=== PATIENT | female | born 1935 | race Caucasian/White ===

== ENCOUNTER → 2018-04-09 | Outpatient (CLI) | payer MEDICARE, MEDICAID ==
[~2018-04-09] MED LIST: ALEN70TA51 PO; ALENDRONATE; ALPR.5T PO; AMLO5TAB2 GT; ASP81TEC PO; ASPI325T32 PO; DNPZ5T PO; ENAL5TAB PO; ESCI5TAB PO; ESCT10T PO; FLEC100T2 PO; FLEC50TA2 PO; FLUT1DIS26 IH; FURO40TA4 PO; IBP200T PO; IBUP-30 PO; KCL10CCR PO; LEVASTATIN; LOVA20TA2 PO; NITR100C3 PO; WRF5T PO
--- NOTE | 2018-04-09 14:05 | Diagnostic Imaging Report ---
INDICATION: Left leg pain and swelling. TECHNIQUE: Grayscale with color-flow and Doppler waveform evaluation of the left lower extremity deep venous system. CORRELATION STUDY: None FINDINGS: Color and grayscale sonographic images demonstrate no intraluminal defect within the visualized portion of the common femoral, superficial femoral and/or popliteal veins to suggest thrombus formation. These vessels demonstrate normal response to compression and augmentation. No soft tissue fluid collection. IMPRESSION: 1. Negative for deep venous thrombosis of the left leg. Dictated by: Dictated on workstation # [id number]
== END ==
LOC: RAD 11:39
PROVIDERS: ATTEND Family Medicine
DX: R22.42 Localized swelling, mass and lump, left lower limb (principal)

== ENCOUNTER → 2019-06-23 | Outpatient (CLI) | payer MEDICARE, MEDICAID ==
--- NOTE | 2019-06-23 15:54 | Diagnostic Imaging Report ---
PROCEDURE: US left lower extremity venous. TECHNIQUE: Multiple real-time grayscale images were obtained over the left lower extremity in various projections. Additional duplex Doppler and color Doppler images were also obtained. INDICATION: Pain and swelling. FINDINGS: The left common femoral, superficial femoral, popliteal veins and tibial veins demonstrate normal response to compression, augmentation, and Valsalva. There are no abnormal left lower extremity fluid collections or masses. IMPRESSION: No evidence of deep venous thrombosis in the left lower extremity. Dictated by: Dictated on workstation # [id number]
== END ==
LOC: RAD 13:01
PROVIDERS: ATTEND Nurse Practitioner Family
DX: M79.89 Other specified soft tissue disorders (principal)

== ENCOUNTER → 2021-09-05 | Outpatient (CLI) | payer MEDICARE, MEDICAID ==
--- NOTE | 2021-09-05 11:15 | Diagnostic Imaging Report ---
INDICATION: Cough and shortness of breath. TIME OF EXAM: 9:46 AM. COMPARISON: Correlation is made with the prior chest of 05/30/2010. FINDINGS: The heart size is normal. The pulmonary vascularity is unremarkable. The lungs are clear. No infiltrate, effusion, or pneumothorax is detected. IMPRESSION: No acute cardiopulmonary process is detected. Dictated by: Dictated on workstation # [id number]
== END ==
LOC: RAD 09:27
PROVIDERS: ATTEND Nurse Practitioner Family
DX: R05.9 Cough, unspecified (principal); R06.02 Shortness of breath
CPT/HCPCS: 71046

== ENCOUNTER 2022-01-19 10:26 | Emergency (ER) | payer MEDICARE, MEDICAID ==
[~2022-01-19] VITALS: Ht 162 cm; Wt 63.0 kg
--- NOTE | 2022-01-19 10:50 | ED Fall/Injury ---
General Chief Complaint: Trauma-Non Activation Stated Complaint: FALL Nursing Triage Note: arrives to room 6 via ems from [facility] where staff report patient was found in bed but after patient noted pain their assessment noted extensive brusing on her upper thorasic area her, lower back and left posterior lateral knee. patient is unable to recall falling. alert to person only Source: patient, EMS Exam Limitations: clinical condition (limited by dementia) History of Present Illness Date Seen by Provider: Jan 19, 2022 Time Seen by Provider: 10:30 Initial Comments Patient is an 86-year-old female who presents to the emergency department from [facility] chief complaint is that she was found in bed fully dressed and then on examination by staff multiple bruises noted to the left thigh, left hip and left flank. She is complaining of some back pain. She has no recollection of falling or where she may have fallen whatsoever. On her medical records from [facility] it is noted that she has dementia as well as A. fib. No blood thinning agents are noted on her MAR. She denies illness. She states she smokes occasionally. She does not require the use of oxygen. She is 92% on room air with no evidence of increased respiratory effort/distress. Review of systems limited secondary to her dementia. Occurred: other (unknown) Severity: mild Injuries/Pain Location: chest (left flank) Context: unknown Loss of Consciousness: unsure Associated Symptoms (Fall): Other (back pain) Allergies and Home Medications Allergies Coded Allergies: Enalaprilat (Unverified Allergy, Mild, 01/22/08) Gentian Jessie *RETIRED-01/16/12 (Unverified Allergy, Mild, 01/22/08) Nortriptyline (Unverified Allergy, Mild, 01/22/08) Oxycodone (Unverified Allergy, Mild, 01/22/08) Wheat Containing *RETIRED-01/26/12 (Unverified Allergy, Mild, 01/22/08) egg (Unverified Allergy, Mild, 01/22/08) milk (Unverified Allergy, Mild, 01/22/08) nystatin (Unverified Allergy, Mild, 01/22/08) Uncoded Allergies: PCN (Allergy, Mild, 01/22/08) TAPE (Allergy, Mild, 01/22/08) Patient Home Medication List Home Medication List Reviewed: Yes Alprazolam (Xanax) 0.5 Mg Tablet, 0.5 MG PO TID PRN, (Reported) Entered as Reported by: SILVERIO SOLORIO on 10/22/10 184 Amlodipine Besylate (Norvasc Tablet) 5 Mg Tab, 5 MG GT DAILY, (Reported) Entered as Reported by: DEANA YOUNG on 04/03/13 1056 Aspirin (Aspirin Ec 81 Mg) 81 Mg Tabec, 81 MG PO DAILY, (Reported) Entered as Reported by: ALETHA GALEAS on 10/24/10 1502 Donepezil Hcl (Aricept) 5 Mg Tablet, 1 TAB PO HS, (Reported) Entered as Reported by: DONN FLOYD on 02/09/13 1909 Escitalopram Oxalate (Lexapro) 10 Mg Tablet, 10 MG PO DAILY, (Reported) Entered as Reported by: SILVERIO SOLORIO on 10/22/101844 Flecainide Acetate (Flecainide Acetate) 50 Mg Tablet, 50 MG PO BID, (Reported) Entered as Reported by: DEANA YOUNG on 04/03/13 1056 Ibuprofen (Advil) 200 Mg Tablet, 600 MG PO TID, (Reported) Entered as Reported by: DEANA YOUNG on 04/03/13 1056 [Alandronate Sodium] , 70 MG WEEKLY, (Reported) Entered as Reported by: DEANA YOUNG on 04/03/13 1056 Review of Systems Review of Systems Constitutional: see HPI Eyes: No Symptoms Reported Ears, Nose, Mouth, Throat: no symptoms reported Respiratory: no symptoms reported Cardiovascular: no symptoms reported Gastrointestinal: no symptoms reported Musculoskeletal: back pain All Other Systems Reviewed Negative Unless Noted: Yes Past Eibrllo-Tltnyg-Yzngqt Hx Past Medical History Asthma Reproductive Disorders: No Sexually Transmitted Disease: No HIV/AIDS: No Arthritis Breast Anxiety Adverse Reaction/Blood Tranf: No Physical Exam Vital Signs Vital Signs - First Documented 01/19/22 01/19/22 10:30 10:31 Temp 36.8 Pulse 90 Resp 18 B/P (MAP) 165/74 (104) Pulse Ox 92 O2 Delivery Room Air Capillary Refill : Less Than 3 Seconds Height, Weight, BMI Height: '" Weight: 114lbs. oz. 51.370457se; 24.00 BMI Method:Stated General Appearance: WD/WN, no apparent distress HEENT: PERRL/EOMI, normal ENT inspection, TMs normal Neck: non-tender, full range of motion Cardiovascular: systolic murmur, irregularly irregular Respiratory: lungs clear, normal breath sounds, no respiratory distress Gastrointestinal: non tender, soft Back: other (tenderness mi/lower thoracic midline pain) Extremities: normal range of motion, non-tender, normal inspection Neurologic/Psychiatric: alert, normal mood/affect, other (oriented to self only) Skin: normal color, warm/dry, ecchymosis (left flank/left buttock/left lateral thigh) Progress/Results/Core Measures Results/Orders My Orders Orders - MERVIN SERRANO MD Ct Head/Cervical Spine Wo (01/19/22 10:50) Ct Thoracic Spine Wo (01/19/22 10:50) Vital Signs/I&O 01/19/22 01/19/22 10:30 10:31 Temp 36.8 36.8 Pulse 90 90 Resp 18 18 B/P (MAP) 165/74 (104) 165/74 (104) Pulse Ox 92 92 O2 Delivery Room Air Blood Pressure Mean: 104 Progress Progress Note : Time: 12:46 Progress Note Updated sons at the bedside on work up and results. They stated her confusion and mental state are at her baseline. They are comfortable with plan of care. Diagnostic Imaging Diagonstic Imaging: CT Comments [facility] [place], [place] NAME: VIPUL MCKEON Desirae [facility] REC#: [id number] PT STATUS: REG ER : 1935 PHYSICIAN: MERVIN SERRANO MD ADMIT DATE: 01/19/22/ER Draft Date of Exam:01/19/22 CT HEAD/CERVICAL SPINE WO PROCEDURE: CT head and CT cervical spine without contrast. TECHNIQUE: Multiple contiguous axial images were obtained through the brain and cervical spine without the use of intravenous contrast. Sagittal and coronal reformations through the cervical spine were then performed. Auto Exposure Controls were utilized during the CT exam to meet ALARA standards for radiation dose reduction. INDICATION: Fall. Back pain. Confusion. COMPARISON: MRI brain 02/05/2013. FINDINGS: CT HEAD: Moderate generalized parenchymal volume loss and leukoaraiosis. No intracranial hemorrhage, mass effect, hydrocephalus or extra-axial fluid collections. No CT evidence of a territorial infarction. Osseous structures are intact. Paranasal sinuses and mastoids are clear. CT CERVICAL SPINE: Normal alignment. Vertebral body heights are preserved. No fractures are identified. Moderate to advanced degenerative endplate changes are greatest at C3-C6. No high-grade spinal canal stenosis is evident by noncontrast CT. Paravertebral soft tissues are unremarkable. Lung apices are clear. IMPRESSION: No acute intracranial or cervical spine CT findings. Chronic findings, as above. Dictated on workstation # [id number] Dict: 01/19/22 1153 Trans: 01/19/22 1223 [facility] [id number] Interpreted by: MEENA RICHARD MD Electronically signed by: [employer] Imaging: CT Comments NAME: VIPUL MCKEON [facility] REC#: [id number] PT STATUS: REG ER : 1935 PHYSICIAN: MERVIN SERRANO MD ADMIT DATE: 01/19/22/ER Draft Date of Exam:01/19/22 CT THORACIC SPINE WO PROCEDURE: CT thoracic spine without contrast. TECHNIQUE: Multiple axial computerized tomography images were obtained from the base of the thoracic spine to the vertex without intravenous contrast. Auto Exposure Controls were utilized during the CT exam to meet ALARA standards for radiation dose reduction. INDICATION: Fall. Trauma. Back pain. Back bruising. COMPARISON: None. FINDINGS: Normal alignment. Vertebral body heights are preserved. No thoracic spine fractures. Hngx-dp-xswulnwy degenerative endplate changes are greatest at T3-T4. There is ankylosis of T4 through T12. No high-grade spinal canal stenosis is evident by noncontrast CT. Mildly angulated posterior left ninth rib fracture. Visualized lung garcia are clear other than mild dependent atelectasis. Advanced atherosclerotic calcifications in the coronary arteries. Moderate esophageal hiatal hernia. IMPRESSION: 1. Acute mildly angulated posterior left ninth rib fracture. 2. No acute CT findings in the thoracic spine. 3. 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 Dictated on workstation # [id number] Dict: 01/19/22 1220 Trans: 01/19/22 1232 [id number] [id number] Interpreted by: MEENA RICHARD MD Electronically signed by: Departure Impression Primary Impression: Contusion, multiple sites Additional Impression: Closed rib fracture Qualified Codes: S22.32XA - Fracture of one rib, left side, initial encounter for closed fracture Disposition: 01 HOME, SELF-CARE Condition: Stable Departure-Patient Inst. Decision time for Depature: 12:38 Referrals: DEE VAUGHN MD (PCP/Family) Primary Care Physician Patient Instructions: Minor Contusion ED, Rib Fracture (DC) Add. Discharge Instructions: Drink plenty of fluids to stay well-hydrated. Ibuprofen or Tylenol as needed every 6 hours for pain. Ice packs to the areas of swelling and bruising as needed for discomfort. Remember to take deep breaths with your broken rib on the left, it will be pain ful to take deep breaths but you need to do this in order to avoid developing pneumonia. Return to the emergency department for any new, concerning or emergent complaints. Verification and Attestation of Medical Student E/M Service A medical student performed and documented this service in my presence. I reviewed and verified all information documented by the medical student and made modifications to such information, when appropriate. I personally performed the physical exam and medical decision making. Mervin Serrano, Jan 19, 2022,11:00 Copy Copies To 1: DEE VAUGHN MD, KATHRYN M MD Jan 19, 2022 10:50
--- NOTE | 2022-01-19 12:23 | Diagnostic Imaging Report ---
PROCEDURE: CT head and CT cervical spine without contrast. TECHNIQUE: Multiple contiguous axial images were obtained through the brain and cervical spine without the use of intravenous contrast. Sagittal and coronal reformations through the cervical spine were then performed. Auto Exposure Controls were utilized during the CT exam to meet ALARA standards for radiation dose reduction. INDICATION: Fall. Back pain. Confusion. COMPARISON: MRI brain 02/05/2013. FINDINGS: CT HEAD: Moderate generalized parenchymal volume loss and leukoaraiosis. No intracranial hemorrhage, mass effect, hydrocephalus or extra-axial fluid collections. No CT evidence of a territorial infarction. Osseous structures are intact. Paranasal sinuses and mastoids are clear. CT CERVICAL SPINE: Normal alignment. Vertebral body heights are preserved. No fractures are identified. Moderate to advanced degenerative endplate changes are greatest at C3-C6. No high-grade spinal canal stenosis is evident by noncontrast CT. Paravertebral soft tissues are unremarkable. Lung apices are clear. IMPRESSION: No acute intracranial or cervical spine CT findings. Chronic findings, as above. Dictated by: Dictated on workstation # [id number]
--- NOTE | 2022-01-19 12:33 | Diagnostic Imaging Report ---
PROCEDURE: CT thoracic spine without contrast. TECHNIQUE: Multiple axial computerized tomography images were obtained from the base of the thoracic spine to the vertex without intravenous contrast. Auto Exposure Controls were utilized during the CT exam to meet ALARA standards for radiation dose reduction. INDICATION: Fall. Trauma. Back pain. Back bruising. COMPARISON: None. FINDINGS: Normal alignment. Vertebral body heights are preserved. No thoracic spine fractures. Dhmq-nz-vcdftukr degenerative endplate changes are greatest at T3-T4. There is ankylosis of T4 through T12. No high-grade spinal canal stenosis is evident by noncontrast CT. Mildly angulated posterior left ninth rib fracture. Visualized lung garcia are clear other than mild dependent atelectasis. Advanced atherosclerotic calcifications in the coronary arteries. Moderate esophageal hiatal hernia. IMPRESSION: 1. Acute mildly angulated posterior left ninth rib fracture. 2. No acute CT findings in the thoracic spine. 3. 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 Dictated by: Dictated on workstation # [id number]
[2022-01-19 13:19] VITALS: BP 171/85
== END 2022-01-19 13:30 | disposition home or self-care (01) ==
LOC: EDUNIT# 10:26 → ER 10:29
DX: S22.32XA Fracture of one rib, left side, initial encounter for closed fracture (principal); S90.02XA Contusion of left ankle, initial encounter; S30.0XXA Contusion of lower back and pelvis, initial encounter; S70.12XA Contusion of left thigh, initial encounter; F17.200 Nicotine dependence, unspecified, uncomplicated; W19.XXXA Unspecified fall, initial encounter
CPT/HCPCS: 70450; 72125; 72128

== ENCOUNTER → 2022-08-15 | Outpatient (CLI) | payer MEDICARE, MEDICAID ==
--- NOTE | 2022-08-15 16:57 | Diagnostic Imaging Report ---
Status post fall, pain 2 view chest 08/15/2022 COMPARISON 09/05/2021 FINDINGS: The heart is unremarkable. The pulmonary vasculature normal. Increased density in the aspect of the right upper chest abutting the mediastinum is unchanged possibly due to ectatic vasculature or prominence of the thyroid. There is eventration of the right hemidiaphragm with an adjacent airspace opacity noted. This is nonspecific and could represent a focus of atelectasis with infiltrate less likely but not excluded. Correlate with patient's symptoms. There is no pneumothorax. There are no effusions. IMPRESSION: 1. Density at the right lung base could be volume averaging with superimposed airspace opacity and eventration of the right hemidiaphragm. Atelectasis or infiltrate not excluded. Correlate with symptoms. Remaining chest is stable. Dictated by: Dictated on workstation # [id number]
--- NOTE | 2022-08-15 17:45 | Diagnostic Imaging Report ---
HISTORY: Thoracic back pain TECHNIQUE: 3 views of the thoracic spine COMPARISON: 08/15/2022 FINDINGS: Alignment of the thoracic spine appears normal with no spondylolisthesis. Vertebral body heights are generally preserved. There is marked degenerative change in the upper thoracic spine. There appear to be flowing anterior osteophytes, suggestive of diffuse idiopathic skeletal hyperostosis. IMPRESSION: 1. Degenerative changes in the thoracic spine with no acute fracture seen. Dictated by: Dictated on workstation # [id number]
--- NOTE | 2022-08-15 17:45 | Diagnostic Imaging Report ---
HISTORY: Right rib pain after fall. TECHNIQUE: Frontal and oblique views of the right ribs. COMPARISON: 09/05/2021. FINDINGS: No displaced fractures are seen of the right ribs. There is calcification of the costal cartilage. No pleural effusion or pneumothorax is seen. IMPRESSION: 1. No displaced right rib fractures. Dictated by: Dictated on workstation # [id number]
== END ==
LOC: RAD 14:43
PROVIDERS: ATTEND Nurse Practitioner Family
DX: M47.814 Spondylosis without myelopathy or radiculopathy, thoracic region (principal); R07.81 Pleurodynia; R91.8 Other nonspecific abnormal finding of lung field; W19.XXXA Unspecified fall, initial encounter
CPT/HCPCS: 71046; 71100; 72072

== ENCOUNTER 2022-10-13 13:41 | Emergency (ER) | payer MEDICARE, MEDICAID ==
[~2022-10-13] VITALS: Ht 160 cm; Wt 63.5 kg
--- NOTE | 2022-10-13 13:58 | ED General ---
General Chief Complaint: Altered Mental Status Stated Complaint: ALTERED MENTAL STATUS Nursing Triage Note: PT ARRIVED PER EMS, PT ACCORDING TO STAFF AT [facility] HAS HAD CHANGES IN MENTATION SINCE YESTERDAY. PT HAS HAD UTI AND FINISHED 7DAY COARSE OF BACTRIM. PT HAS HX OF DEMENTIA. PT HAS ALSO GOTTEN WEAKER TODAY Source of Information: Patient, EMS Exam Limitations: No Limitations History of Present Illness Date Seen by Provider: Oct 13, 2022 Time Seen by Provider: 13:54 Initial Comments Patient is a 87-year-old female with a history of urinary tract infections, periodic small A-fib, insomnia, anxiety, dementia who presents to ED from [facility] for increased confusion and weakness. Recently finished Bactrim today over 7 days for urinary tract infection. Patient with a change in her mentation today. She was acting like she was drinking coffee with her hands this morning. Staff noted a unsteady gait. She appears to be more weak than normal. They are concerned for sepsis at [facility]. Patient on arrival alert and oriented x2. She denies of any current complaints. She denies chest pain, headache, visual changes, abdominal pain, vomiting or diarrhea, fever, back pain, fever, or urinary symptoms. Allergies and Home Medications Allergies Coded Allergies: Enalaprilat (Unverified Allergy, Mild, 01/22/08) Gentian Jessie *RETIRED-01/16/12 (Unverified Allergy, Mild, 01/22/08) Nortriptyline (Unverified Allergy, Mild, 01/22/08) Oxycodone (Unverified Allergy, Mild, 01/22/08) Wheat Containing *RETIRED-01/26/12 (Unverified Allergy, Mild, 01/22/08) egg (Unverified Allergy, Mild, 01/22/08) milk (Unverified Allergy, Mild, 01/22/08) nystatin (Unverified Allergy, Mild, 01/22/08) Uncoded Allergies: PCN (Allergy, Mild, 01/22/08) TAPE (Allergy, Mild, 01/22/08) Patient Home Medication List Home Medication List Reviewed: Yes Alprazolam (Xanax) 0.5 Mg Tablet, 0.5 MG PO TID PRN, (Reported) Entered as Reported by: SILVERIO SOLORIO on 10/22/10 1844 Amlodipine Besylate (Norvasc Tablet) 5 Mg Tab, 5 MG GT DAILY, (Reported) Entered as Reported by: DEANA OYUNG on 04/03/13 1056 Aspirin (Aspirin Ec 81 Mg) 81 Mg Tabec, 81 MG PO DAILY, (Reported) Entered as Reported by: ALETHA GALEAS on 10/24/10 1502 Donepezil Hcl (Aricept) 5 Mg Tablet, 1 TAB PO HS, (Reported) Entered as Reported by: DONN FLOYD on 02/09/13 1909 Escitalopram Oxalate (Lexapro) 10 Mg Tablet, 10 MG PO DAILY, (Reported) Entered as Reported by: SILVERIO SOLORIO on 10/22/10 1845 Flecainide Acetate (Flecainide Acetate) 50 Mg Tablet, 50 MG PO BID, (Reported) Entered as Reported by: DEANA YOUNG on 04/03/13 1056 Ibuprofen (Advil) 200 Mg Tablet, 600 MG PO TID, (Reported) Entered as Reported by: DEANA YOUNG on 04/03/13 1056 [Alandronate Sodium] , 70 MG WEEKLY, (Reported) Entered as Reported by: DEANA YOUNG on 04/03/13 1056 Review of Systems Review of Systems Constitutional: No chills, No diaphoresis, No fever; malaise, weakness EENTM: No ear pain, No blurred vision, No double vision Respiratory: No cough Cardiovascular: No chest pain Gastrointestinal: No abdominal pain, No diarrhea, No nausea, No vomiting Genitourinary: No decreased output, No discharge Musculoskeletal: No back pain, No joint pain Skin: No change in color, No change in hair/nails All Other Systems Reviewed Negative Unless Noted: Yes Past Ixhrygf-Iauyuf-Pwftfu Hx Patient Social History Tobacco Use?: No Substance use?: No Alcohol Use?: No Pt feels they are or have been: No Immunizations Up To Date First/Initial COVID19 Vaccinat: UNK Second COVID19 Vaccination Aidan: UNK Third COVID19 Vaccination Date: UNK Past Medical History Surgery/Hospitalization HX: DEMENTIA, FREQUENT UTI,A-FIB,HTN Asthma Reproductive Disorders: No Sexually Transmitted Disease: No HIV/AIDS: No Arthritis Breast Anxiety Adverse Reaction/Blood Tranf: No Physical Exam Vital Signs Vital Signs - First Documented 10/13/22 13:44 Temp 37.0 Pulse 72 Resp 18 B/P (MAP) 158/75 (102) Pulse Ox 93 Capillary Refill : Less Than 3 Seconds Height, Weight, BMI Height: '" Weight: 114lbs. oz. [id number]; 24.00 BMI Method:Stated General Appearance: No Apparent Distress, WD/WN Eyes: Bilateral Eye Normal Inspection, Bilateral Eye PERRL, Bilateral Eye Abnormal EOM HEENT: PERRL/EOMI, TMs Normal, Normal ENT Inspection, Pharynx Normal Neck: Full Range of Motion, Normal Inspection, Non Tender, Supple Respiratory: Chest Non Tender, Lungs Clear, Normal Breath Sounds, No Accessory Muscle Use, No Respiratory Distress Cardiovascular: Regular Rate, Rhythm, No Edema, No Gallop, No JVD, No Murmur Gastrointestinal: Normal Bowel Sounds, No Organomegaly, No Pulsatile Mass, Non Tender Extremity: Normal Capillary Refill, Normal Inspection, Normal Range of Motion, Non Tender Neurologic/Psychiatric: Alert, No Motor/Sensory Deficits, claims administrator II-XII Norm as Tested, Disoriented (Slight confusion), Other (Alert and orient x2 name, birthday) Skin: Normal Color, Warm/Dry Progress/Results/Core Measures Suspected Sepsis SIRS Temperature: Pulse: 72 Respiratory Rate: 18 Laboratory Tests 10/13/22 13:50: White Blood Count 4.2L Blood Pressure 158 /75 Mean: 102 Laboratory Tests 10/13/22 13:50: Creatinine 1.57H, Platelet Count 234, Total Bilirubin 0.4 Results/Orders Lab Results Laboratory Tests Test 10/13/22 13:50 10/13/22 15:04 Range/Units White Blood Count 4.2 L 4.3-11.0 10^3/uL Red Blood Count 4.40 3.80-5.11 10^6/uL Hemoglobin 13.8 11.5-16.0 g/dL Hematocrit 43 35-52 % Mean Corpuscular Volume 97 80-99 fL Mean Corpuscular Hemoglobin 31 25-34 pg Mean Corpuscular Hemoglobin Concent 32 32-36 g/dL Red Cell Distribution Width 13.2 10.0-14.5 % Platelet Count 234 130-400 10^3/uL Mean Platelet Volume 9.6 9.0-12.2 fL Immature Granulocyte % (Auto) 0 % Neutrophils (%) (Auto) 65 42-75 % Lymphocytes (%) (Auto) 24 12-44 % Monocytes (%) (Auto) 8 0-12 % Eosinophils (%) (Auto) 1 0-10 % Basophils (%) (Auto) 1 0-10 % Neutrophils # (Auto) 2.7 1.8-7.8 10^3/uL Lymphocytes # (Auto) 1.0 1.0-4.0 10^3/uL Monocytes # (Auto) 0.4 0.0-1.0 10^3/uL Eosinophils # (Auto) 0.1 0.0-0.3 10^3/uL Basophils # (Auto) 0.0 0.0-0.1 10^3/uL Immature Granulocyte # (Auto) 0.0 0.0-0.1 10^3/uL Sodium Level 137 135-145 MMOL/L Potassium Level 4.8 3.6-5.0 MMOL/L Chloride Level 105 98-107 MMOL/L Carbon Dioxide Level 22 21-32 MMOL/L Anion Gap 10 5-14 MMOL/L Blood Urea Nitrogen 17 7-18 MG/DL Creatinine 1.57 H 0.60-1.30 MG/DL Estimat Glomerular Filtration Rate 32 BUN/Creatinine Ratio 11 Glucose Level 113 H 70-105 MG/DL Calcium Level 9.9 8.5-10.1 MG/DL Corrected Calcium 9.9 8.5-10.1 MG/DL Magnesium Level 2.3 1.6-2.4 MG/DL Total Bilirubin 0.4 0.1-1.0 MG/DL Aspartate Amino Transf (AST/SGOT) 17 5-34 U/L Alanine Aminotransferase (ALT/SGPT) 11 0-55 U/L Alkaline Phosphatase 55 40-136 U/L C-Reactive Protein High Sensitivity 0.81 H 0.00-0.50 MG/DL Total Protein 7.5 6.4-8.2 GM/DL Albumin 4.0 3.2-4.5 GM/DL Urine Color YELLOW Urine Clarity CLEAR Urine pH 6.0 5-9 Urine Specific [place] >=1.030 1.016-1.022 Urine Protein NEGATIVE NEGATIVE Urine Glucose (UA) NEGATIVE NEGATIVE Urine Ketones NEGATIVE NEGATIVE Urine Nitrite NEGATIVE NEGATIVE Urine Bilirubin NEGATIVE NEGATIVE Urine Urobilinogen 0.2 < = 1.0 MG/DL Urine Leukocyte Esterase NEGATIVE NEGATIVE Urine RBC (Auto) TRACE-I H NEGATIVE Urine RBC 0-2 /HPF Urine WBC RARE /HPF Urine Squamous Epithelial Cells RARE /HPF Urine Crystals NONE /LPF Urine Bacteria TRACE /HPF Urine Casts NONE /LPF Urine Mucus SMALL H /LPF Urine Culture Indicated NO My Orders Orders - LENA NICOLE PA Ua Culture If Indicated (10/13/22 13:52) Cbc With Automated Diff (10/13/22 13:52) Comprehensive Metabolic Panel (10/13/22 13:52) Hs C Reactive Protein (10/13/22 13:52) Ekg Tracing (10/13/22 13:52) Chest 1 View, Ap/Pa Only (10/13/22 13:52) Ct Head Wo (10/13/22 13:52) Magnesium (10/13/22 13:52) Straight Cath For Spec.-Adult (10/13/22 14:19) Ns Iv 500 Ml (Sodium Chloride 0.9%) (10/13/22 14:33) Vital Signs/I&O 10/13/22 10/13/22 13:44 16:30 Temp 37.0 Pulse 72 90 Resp 18 20 B/P (MAP) 158/75 (102) 140/70 Pulse Ox 93 92 Capillary Refill : Less Than 3 Seconds Blood Pressure Mean: 102 ECG Comment Atrial fibrillation, 77 bpm, QRS duration 77 MS, QTc 423 MS Departure Communication (PCP) Reviewed previous ER visits, H&P, lab testing. Differential diagnosis of UTI, dementia, pneumonia, acute kidney injury, electrolyte abnormality, stroke. Patient is a 87-year-old female with a history of dementia presents to ED from [facility] for evaluation for weakness, altered mental status. Patient was able to ambulate for EMS. On arrival able to ambulate over to the bed. She alert and orient x2. Able to recall her date of her name and location. No focal neural deficits. Vital signs stable. She is afebrile. Recently treated for UTI with Bactrim. Last dose was today. She has no chest pain abdominal pain, headache. No urinary symptoms vomiting or diarrhea. General lab work CBC, CMP, urinalysis, chest x-ray, CT scan of the head for the increase confusion and change in mental status. CT scan of the head was unremarkable for bleed, mass. EKG A-fib with a known chronic history. She is on anticoagulant. Chest x-ray negative for pneumonia. CBC, CMP grossly unremarkable besides WBC 4.0 which is nonspecific. Her creatinine was 1.57 GFR 32, Likely chronic however she did receive 500 mls of normal saline. Normal electrolytes. She does not appear toxic or septic. According to family she seems slightly more confused today. No evidence suggesting infection at this time. She was able to ambulate to the bathroom. Symptoms may be multifactorial such as dehydration with worsening dementia. Due to reassuring lab work and exam patient will be discharged back to [facility]. Continue monitoring. If any change in behavior, fever to return back to ED. Follow-up PCP in 2 to 3 days for reevaluat Impression Primary Impression: Weakness Disposition: 01 HOME, SELF-CARE Condition: Stable Departure-Patient Inst. Decision time for Depature: 15:41 Referrals: DEE VAUGHN MD (PCP/Family) Primary Care Physician Patient Instructions: Generalized Weakness (DC) Add. Discharge Instructions: Lab work generalized unremarkable. Normal CT scan of the head. Chest x-ray negative for pneumonia urinalysis negative for infection. Received 500 mils of normal saline. Recommend follow-up primary care physician for further evaluation. All discharge instructions reviewed with patient and/or family. Voiced understanding. LENA NICOLE Oct 13, 2022 13:57
[2022-10-13 14:03] LABS: BASOPHILS % (AUTO) 1 % (0-10); EOSINOPHILS # (AUTO) 0.1 10^3/uL (0.0-0.3); EOSINOPHILS % (AUTO) 1 % (0-10); HEMATOCRIT 43 % (35-52); HEMOGLOBIN 13.8 g/dL (11.5-16.0); LYMPHOCYTES % (AUTO) 24 % (12-44); MEAN CORPUSCULAR HEMOGLOBIN 31 pg (25-34); MEAN CORPUSCULAR HGB CONC 32 g/dL (32-36); MEAN CORPUSCULAR VOLUME 97 fL (80-99); MEAN PLATELET VOLUME 9.6 fL (9.0-12.2); MONOCYTES # (AUTO) 0.4 10^3/uL (0.0-1.0); MONOCYTES % (AUTO) 8 % (0-12); NEUTROPHILS # (AUTO) 2.7 10^3/uL (1.8-7.8); NEUTROPHILS % (AUTO) 65 % (42-75); PLATELET COUNT 234 10^3/uL (130-400); WHITE BLOOD COUNT 4.2 10^3/uL (4.3-11.0)
--- NOTE | 2022-10-13 14:11 | Diagnostic Imaging Report ---
EXAMINATION: Chest, one view. HISTORY: Cough. COMPARISON: 08/15/2022. FINDINGS: Heart size and pulmonary vasculature are normal. Stable mild interstitial opacities in the lung bases, which could represent atelectasis or scarring. The lungs are clear without consolidation, pleural effusion, or pneumothorax. Degenerative changes of the thoracic spine. Osseous structures are otherwise intact. IMPRESSION: 1. No acute radiographic abnormality in the chest. Dictated by: Dictated on workstation # [id number]
[2022-10-13 14:21] LABS: POTASSIUM 4.8 MMOL/L (3.6-5.0)
[2022-10-13 14:23] LABS: CALCIUM 9.9 MG/DL (8.5-10.1)
[2022-10-13 14:24] LABS: TOTAL PROTEIN 7.5 GM/DL (6.4-8.2)
[2022-10-13 14:26] LABS: BILIRUBIN,TOTAL 0.4 MG/DL (0.1-1.0)
[2022-10-13 14:27] LABS: CREATININE SERUM 1.57 MG/DL (0.60-1.30)
[2022-10-13 14:31] LABS: MAGNESIUM 2.3 MG/DL (1.6-2.4)
--- NOTE | 2022-10-13 14:32 | Diagnostic Imaging Report ---
CLINICAL INDICATION: Patient with changes in mentation yesterday. Patient finished a seven-day course of Bactrim and has history of dementia. Patient has gotten weaker today. Exam: Axial CT scan of the brain without IV contrast with coronal and sagittal reformatted images. Auto Exposure Controls were utilized during the CT exam to meet ALARA standards for radiation dose reduction. COMPARISON: CT scan of the head and cervical spine without contrast dated 01/17/2022. FINDINGS: There is no evidence of acute cerebral infarct, intracranial hemorrhage, or gross mass effect. There is no significant change in the diffuse brain parenchymal volume loss with the temporal lobes affected the most. There are stable diffuse patchy and confluent areas of low-attenuation white matter changes involving both cerebral hemispheres and periventricular regions, likely representing chronic small vessel ischemic disease and leukoaraiosis. There is no hydrocephalus. Basal cisterns are unremarkable. The extracranial soft tissues, skull, and orbits are unremarkable. Paranasal sinuses and mastoid air cells are clear. IMPRESSION: Stable CT scan of the brain with no interval evidence of acute intracranial process. Dictated by: Dictated on workstation # [id number]
[2022-10-13] MEDS ORDERED: NS IV 500 ML 500 ML IV STA (14:33)
[2022-10-13 15:10] LABS: BILIRUBIN,URINE NEGATIVE (NEGATIVE); CLARITY,URINE CLEAR; COLOR,URINE YELLOW; GLUCOSE, URINE (UA) NEGATIVE (NEGATIVE); KETONES,URINE NEGATIVE (NEGATIVE); LEUKOCYTE ESTERASE ,URINE NEGATIVE (NEGATIVE); NITRITE,URINE NEGATIVE (NEGATIVE); PROTEIN,URINE NEGATIVE (NEGATIVE)
[2022-10-13 15:19] LABS: BACTERIA,URINE TRACE /HPF; RBC,URINE 0-2 /HPF; SQUAMOUS EPITHELIAL CELL,UR RARE /HPF; WBC,URINE RARE /HPF
[2022-10-13 16:30] VITALS: BP 140/70
== END 2022-10-13 16:36 | disposition home or self-care (01) ==
LOC: EDUNIT# 13:41 → ER 13:42
DX: R41.82 Altered mental status, unspecified (principal); R53.1 Weakness; I48.91 Unspecified atrial fibrillation; F03.90 Unspecified dementia, unspecified severity, without behavioral disturbance, psychotic disturbance, mood disturbance, and anxiety; Z79.01 Long term (current) use of anticoagulants
CPT/HCPCS: 36415; 51701; 70450; 71045; 80053; 81000; 83735; 85025; 86141

== ENCOUNTER 2022-12-13 14:26 | Outpatient (CLI) | payer MEDICARE, MEDICAID ==
[~2022-12-13] VITALS: Ht 160 cm; Wt 65.9 kg
[2022-12-13] MEDS ORDERED: NS IV 500 ML 500 ML ONE (14:48)
[2022-12-13 15:00] VITALS: BP 136/60
[2022-12-13] MEDS ORDERED: NS IV 500 ML 500 ML IV SCH (15:00)
== END 2022-12-13 17:17 | disposition home or self-care (01) ==
LOC: SDC 14:26
PROVIDERS: ATTEND Nurse Practitioner Family
DX: F41.8 Other specified anxiety disorders (principal); I48.91 Unspecified atrial fibrillation; I10 Essential (primary) hypertension; R06.83 Snoring; N39.0 Urinary tract infection, site not specified; J30.9 Allergic rhinitis, unspecified; F02.818 Dementia in other diseases classified elsewhere, unspecified severity, with other behavioral disturbance
CPT/HCPCS: 96360; 96361

== ENCOUNTER → 2022-12-14 | Outpatient (CLI) | payer MEDICARE, MEDICAID ==
--- NOTE | 2022-12-14 11:42 | Diagnostic Imaging Report ---
PROCEDURE: CT head without contrast. TECHNIQUE: Multiple contiguous axial images were obtained through the brain without the use of intravenous contrast. Auto Exposure Controls were utilized during the CT exam to meet ALARA standards for radiation dose reduction. INDICATION: Fall, distracting injury to the right forehead. COMPARISON: CT of the head on 10/13/2022. FINDINGS: No acute intracranial hemorrhage. The al-white matter differentiation is preserved. Extensive chronic focal confluent hypoattenuation within the periventricular and subcortical white matter. 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 Generalized prominence of the ventricles and cortical sulci. No midline shift or mass effect. No intracranial mass or fluid collection. Some right basilar cisterns are patent. The sella is normal. The skull is intact. The paranasal sinuses and mastoids are clear. The globes and orbits are normal. The soft tissues are normal. IMPRESSION: No acute intracranial hemorrhage, large vascular territorial loss, or hydrocephalus. Advanced chronic small vessel ischemic disease. Mild global volume loss. Dictated by: Dictated on workstation # [id number]
== END ==
LOC: RAD 11:18
PROVIDERS: ATTEND Nurse Practitioner Family
DX: R41.0 Disorientation, unspecified (principal)
CPT/HCPCS: 70450

== ENCOUNTER → 2022-12-25 | Outpatient (CLI) | payer MEDICARE, MEDICAID ==
--- NOTE | 2022-12-25 15:21 | Diagnostic Imaging Report ---
PROCEDURE: US carotid duplex, bilateral. TECHNIQUE: Multiple real-time grayscale images were obtained over the carotid arteries in various projections, bilaterally. Additional spectral analysis and color Doppler duplex images were also obtained. INDICATION: Tobacco use. FINDINGS: There are no focally elevated velocities in either internal carotid artery. The ICA/CCA ratios are within normal limits, bilaterally. There is antegrade flow in the vertebral arteries, bilaterally. Grayscale images demonstrate minimal carotid plaque, bilaterally. IMPRESSION: Minimal bilateral carotid plaque however spectral analysis shows no evidence of a hemodynamically significant stenosis in either internal carotid artery. Parameters based on the consensus panel Villa-Scale and Doppler ultrasound criteria published March 2003, Radiology, Volume 229. DOPPLER (peak systolic velocity M/S Right Left CCA .68 .84 ICA Proximal 1.26 1.01 ICA Mid 1.25 .52 ICA Distal .90 .53 RATIO 1.52 1.20 ECA 1.12 1.23 VERT .46 .78 Dictated by: Dictated on workstation # [id number]
== END ==
LOC: RAD 13:03
PROVIDERS: ATTEND Nurse Practitioner
DX: I67.9 Cerebrovascular disease, unspecified (principal); R93.3 Abnormal findings on diagnostic imaging of other parts of digestive tract; Z72.0 Tobacco use
CPT/HCPCS: 93880